=== PATIENT | female | born 1975 | race Caucasian/White ===

== ENCOUNTER 2019-04-27 15:49 | Emergency (ER) | payer OTHER ==
[2019-04-27 16:27] LABS: Absolute Lymphocytes (CBC) 2.6 K/uL (0.7-4.9); Absolute Monocytes 0.7 K/uL (0.1-1.3); Absolute Neutrophil 8.4 K/uL (1.8-8.0); Basophils % 1.1 % (0-1.3); Eosinophils % 1.2 % (0-4.4); Hematocrit 38.4 % (36.0-45.0); Lymphocytes % 21.8 % (15.3-44.8); MPV 8.8 fL (7.6-11.3); Monocytes % 6.1 % (3.3-12.3); RBC Red Blood Cell Count 4.65 M/uL (3.86-4.86)
[2019-04-27 16:28] LABS: Protime INR 1.05
--- NOTE | 2019-04-27 16:43 | RAD REPORT ---
EXAM DESCRIPTION: Autumn Single View04/27/2019 4:36 pm CLINICAL HISTORY: Chest pain COMPARISON: 2010 FINDINGS: The lungs appear clear of acute infiltrate. The heart is normal size IMPRESSION: No acute abnormalities displayed
[2019-04-27 17:22] LABS: ALT/SGPT 22 U/L (12-78); AST/SGOT 17 U/L (15-37); Albumin 3.3 g/dL (3.4-5.0); Alkaline Phosphatase 79 U/L (45-117); BUN Blood Urea Nitrogen 15 mg/dL (7-18); Bicarbonate 25 mmol/L (21-32); Bilirubin Direct < 0.1 mg/dL (0-0.2); Bilirubin Total 0.3 mg/dL (0.2-1.0); Glucose Level 109 mg/dL (74-106); Magnesium 1.8 mg/dL (1.8-2.4); NT PRO-BNP 66 pg/mL (<125); Protein, Total 8.1 g/dL (6.4-8.2); Sodium Level 137 mmol/L (136-145); Troponin (Emerg Dept Use Only) < 0.02 ng/mL (0.0-0.045)
--- NOTE | 2019-04-27 21:05 | ER ---
Nurse's Notes [facility] Name: Hue De La Cruz Age: 44 yrs Sex: Female : 1975 Arrival Date: 04/27/2019 Time: 15:51 Bed 4 Private MD: Marlon Morris Diagnosis: Chest pain, unspecified Presentation: 04/27 15:52 Presenting complaint: Patient states: i have this chest pain that started last night, hj burning pain; pain moves to my R shoulder area and back; reports SOB;pain is 4/10;. Transition of care: patient was not received from another setting of care. Onset of symptoms was April 27, 2019. Risk Assessment: Do you want to hurt yourself or someone else? Patient reports no desire to harm self or others. Initial Sepsis Screen: Does the patient meet any 2 criteria? No. Patient's initial sepsis screen is negative. Does the patient have a suspected source of infection? No. Patient's initial sepsis screen is negative. Care prior to arrival: None. 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 - Social history:: Smoking status: unknown. - Ebola Screening: : No symptoms or risks identified at this time. Screenin:41 Abuse screen: Denies threats or abuse. Denies injuries from another. Nutritional mg2 screening: No deficits noted. Tuberculosis screening: No symptoms or risk factors identified. Fall Risk IV access (20 points). Assessment: 16:38 General: Appears in no apparent distress. comfortable, Behavior is calm, cooperative. mg2 Pain: Complains of pain in chest Pain radiates to RUQ Pain currently is 2 out of 10 on a pain scale. Quality of pain is described as aching, Pain began gradually, since last night. Neuro: Level of Consciousness is awake, alert, obeys commands, Oriented to person, place, time, situation. Cardiovascular: Capillary refill < 3 seconds Patient's skin is warm and dry. Cardiovascular: Reports chest pain. Respiratory: Airway is patent Respiratory effort is even, unlabored, Respiratory pattern is regular, symmetrical. GI: No signs and/or symptoms were reported involving the gastrointestinal system. GI: Reports nausea. : No signs and/or symptoms were reported regarding the genitourinary system. EENT: No signs and/or symptoms were reported regarding the EENT system. Derm: Skin is intact, is healthy with good turgor, Skin is pink, warm \T\ dry. normal. 19:45 General: Appears in no apparent distress. comfortable, Behavior is calm, cooperative, cc3 appropriate for age. Pain: Complains of pain in chest Quality of pain is described as aching, Pain began last night. Neuro: Level of Consciousness is awake, alert, obeys commands, Oriented to person, place, time, situation. Neuro: Level of Consciousness is awake, alert, obeys commands, Oriented to person, place, time, situation, Appropriate for age. Cardiovascular: Reports chest pain, since last night. Cardiovascular: Reports chest pain, Capillary refill < 3 seconds Patient's skin is warm and dry. Respiratory: Airway is patent Respiratory effort is even, unlabored, Respiratory pattern is regular, symmetrical. GI: Abdomen is round non-distended. : No signs and/or symptoms were reported regarding the genitourinary system. EENT: No signs and/or symptoms were reported regarding the EENT system. Derm: Skin is intact, is healthy with good turgor, Skin is pink, warm \T\ dry. normal. Musculoskeletal: Circulation, motion, and sensation intact. Range of motion: intact in all extremities. 19:45 Reassessment: Patient appears in no apparent distress at this time. Patient and/or cc3 family updated on plan of care and expected duration. Pain level reassessed. Patient is alert, oriented x 3, equal unlabored respirations, skin warm/dry/pink. Patient denies pain at this time. Patient states feeling better. 20:30 Reassessment: Patient appears in no apparent distress at this time. Patient and/or cc3 family updated on plan of care and expected duration. Pain level reassessed. Patient is alert, oriented x 3, equal unlabored respirations, skin warm/dry/pink. Patient denies pain at this time. 21:17 Reassessment: Patient appears in no apparent distress at this time. Patient is alert, lp1 oriented x 3, equal unlabored respirations, skin warm/dry/pink. Patient denies pain at this time. Vital Signs: 15:54 BP 141 / 73; Pulse 83; Resp 20; Temp 97.7(O); Pulse Ox 98% on R/A; Weight 127.01 kg; hj Height 5 ft. 6 in. (167.64 cm); Pain 4/10; 18:01 BP 136 / 70; Pulse 80; Resp 18; Temp 98.5; Pulse Ox 100% on R/A; mg2 19:30 BP 134 / 80; Pulse 78; Resp 21 S; Pulse Ox 99% on R/A; cc3 20:30 BP 126 / 84; Pulse 83; Resp 20 S; Pulse Ox 96% on R/A; cc3 21:15 BP 134 / 87; Pulse 81; Resp 19; Pulse Ox 99% on R/A; Pain 0/10; lp1 15:54 Body Mass Index 45.19 (127.01 kg, 167.64 cm) hj ED Course: 15:51 Patient arrived in ED. mr 15:51 Marlon Morris MD is Private Physician. mr 15:53 Triage completed. hj 15:56 Arm band placed on right wrist. hj 16:10 EKG done, by certified neurodiagnostic technologist. reviewed by Arron Chavarria MD. sm3 16:12 Michael Crum, MANGO is Primary Nurse. mg2 16:14 Inserted saline lock: 20 gauge in left forearm, using aseptic technique. Blood mg2 collected. 16:17 Po Villalpando, PAULINA is PHCP. pm1 16:17 Arron Chavarria MD is Attending Physician. pm1 16:37 XRAY Chest (1 view) In Process Unspecified. EDMS 16:41 Patient has correct armband on for positive identification. monitor and storage bin tender on. Pulse mg2 ox on. NIBP on. 16:41 No provider procedures requiring assistance completed. Patient maintains SpO2 mg2 saturation greater than 95% on room air. 21:16 IV discontinued, No redness/swelling at site. Pressure dressing applied. lp1 Administered Medications: No medications were administered Outcome: 21:04 Discharge ordered by . pm1 21:16 Discharged to home ambulatory, with family. lp1 21:16 Condition: good 21:16 Discharge instructions given to patient, Instructed on discharge instructions, follow up and referral plans. Demonstrated understanding of instructions, follow-up care. 21:18 Patient left the ED. lp1 Signatures: Dispatcher [employer] CARMINA Alexa Bejarano mr Kell Pizarro RN RN lp1 Jayden Urbano RN RN hj Po Villalpando, ENGINEERING TECHNICIAN PARKING ENGINEERING TECHNICIAN PARKING pm1 Michael Crum RN RN [facility] Nelli Simmons sm3 Diann Blanton cc3 Corrections: (The following items were deleted from the chart) 15:56 15:54 Pulse 83bpm; Resp 20bpm; Pulse Ox 98% RA; Temp 97.7F Oral; 127.01 kg; Height 5 hj ft. 6 in.; BMI: 45.1; Pain 4/10; hj
--- NOTE | 2019-04-27 21:05 | EDPHYS ---
Physician Documentation [facility] Name: Hue De La Cruz Age: 44 yrs Sex: Female : 1975 Arrival Date: 04/27/2019 Time: 15:51 Bed 4 Private MD: Marlon Morris ED Physician Arron Chavarria HPI: 04/27 17:05 This 44 yrs old Female presents to ER via Ambulatory with complaints of Chest pm1 Pain. 17:05 The patient or guardian reports chest pain that is located primarily in the right pm1 breast. Onset: yesterday. The pain radiates to right shoulder. Associated signs and symptoms: Pertinent positives: shortness of breath, Pertinent negatives: dizziness, headache, nausea, vomiting. The chest pain is described as burning. Duration: The patient or guardian reports multiple episodes, that have now resolved. Modifying factors: The symptoms are alleviated by nothing. the symptoms are aggravated by deep breath. Severity of pain: in the emergency department the pain has resolved is a 0 / 10. The patient has not experienced similar symptoms in the past. The patient has not recently seen a physician. 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 - Social history:: Smoking status: unknown. - Ebola Screening: : No symptoms or risks identified at this time. ROS: 17:05 Constitutional: Negative for fever, chills, and weight loss, Eyes: Negative for injury, pm1 pain, redness, and discharge, ENT: Negative for injury, pain, and discharge, Neck: Negative for injury, pain, and swelling. 17:05 Abdomen/GI: Negative for abdominal pain, nausea, vomiting, diarrhea, and constipation. 17:05 Back: Negative for injury and pain, MS/Extremity: Negative for injury and deformity, Skin: Negative for injury, rash, and discoloration, Neuro: Negative for headache, weakness, numbness, tingling, and seizure. 17:05 Cardiovascular: Positive for chest pain, Negative for edema, orthopnea, palpitations. 17:05 Respiratory: Positive for shortness of breath, Negative for cough, dyspnea on exertion, sputum production, wheezing. Exam: 17:05 Constitutional: This is a well developed, well nourished patient who is awake, alert, pm1 and in no acute distress. Head/Face: Normocephalic, atraumatic. Eyes: Pupils equal round and reactive to light, extra-ocular motions intact. Lids and lashes normal. Conjunctiva and sclera are non-icteric and not injected. Cornea within normal limits. Periorbital areas with no swelling, redness, or edema. ENT: Nares patent. No nasal discharge, no septal abnormalities noted. Tympanic membranes are normal and external auditory canals are clear. Oropharynx with no redness, swelling, or masses, exudates, or evidence of obstruction, uvula midline. Mucous membranes moist. Neck: Trachea midline, no thyromegaly or masses palpated, and no cervical lymphadenopathy. Supple, full range of motion without nuchal rigidity, or vertebral point tenderness. No Meningismus. Chest/axilla: Normal chest wall appearance and motion. Nontender with no deformity. No lesions are appreciated. Cardiovascular: Regular rate and rhythm with a normal S1 and S2. No gallops, murmurs, or rubs. Normal PMI, no JVD. No pulse deficits. Respiratory: Lungs have equal breath sounds bilaterally, clear to auscultation and percussion. No rales, rhonchi or wheezes noted. No increased work of breathing, no retractions or nasal flaring. Abdomen/GI: Soft, non-tender, with normal bowel sounds. No distension or tympany. No guarding or rebound. No evidence of tenderness throughout. Back: No spinal tenderness. No costovertebral tenderness. Full range of motion. Skin: Warm, dry with normal turgor. Normal color with no rashes, no lesions, and no evidence of cellulitis. MS/ Extremity: Pulses equal, no cyanosis. Neurovascular intact. Full, normal range of motion. 17:05 Neuro: Orientation: is normal, Motor: is normal. Vital Signs: 15:54 BP 141 / 73; Pulse 83; Resp 20; Temp 97.7(O); Pulse Ox 98% on R/A; Weight 127.01 kg; hj Height 5 ft. 6 in. (167.64 cm); Pain 4/10; 18:01 BP 136 / 70; Pulse 80; Resp 18; Temp 98.5; Pulse Ox 100% on R/A; mg2 19:30 BP 134 / 80; Pulse 78; Resp 21 S; Pulse Ox 99% on R/A; cc3 20:30 BP 126 / 84; Pulse 83; Resp 20 S; Pulse Ox 96% on R/A; cc3 21:15 BP 134 / 87; Pulse 81; Resp 19; Pulse Ox 99% on R/A; Pain 0/10; lp1 15:54 Body Mass Index 45.19 (127.01 kg, 167.64 cm) hj MDM: 16:17 Patient medically screened. pm1 21:04 Data reviewed: vital signs. Data interpreted: Pulse oximetry: on room air is 96 %. pm1 Interpretation: normal. Counseling: I had a detailed discussion with the patient and/or guardian regarding: the historical points, exam findings, and any diagnostic results supporting the discharge/admit diagnosis, lab results, radiology results, the need for outpatient follow up, to return to the emergency department if symptoms worsen or persist or if there are any questions or concerns that arise at home. 04/27 16:13 Order name: CBC with Diff; Complete Time: 16:59 mg2 04/27 16:13 Order name: PT-INR; Complete Time: 16:59 mg2 04/27 16:13 Order name: XRAY Chest (1 view); Complete Time: 16:59 mg2 04/27 16:41 Order name: Basic Metabolic Panel; Complete Time: 18:01 EDMS 04/27 16:41 Order name: Liver (Hepatic) Function; Complete Time: 18:01 EDMS 04/27 16:41 Order name: Troponin (Emerg Dept Use Only); Complete Time: 18:01 EDMS 04/27 16:41 Order name: NT PRO-BNP; Complete Time: 18:01 EDMS 04/27 16:41 Order name: Magnesium; Complete Time: 18:01 EDMS 04/27 20:19 Order name: Troponin (emerg Dept Use Only); Complete Time: 21:04 mg2 04/27 16:13 Order name: EKG; Complete Time: 16:15 mg2 04/27 16:13 Order name: Cardiac monitoring; Complete Time: 16:38 mg2 04/27 16:13 Order name: EKG - Nurse/Tech; Complete Time: 16:38 mg2 04/27 16:13 Order name: IV Saline Lock; Complete Time: 16:38 mg2 04/27 16:13 Order name: Labs collected and sent; Complete Time: 16:38 mg2 04/27 16:13 Order name: O2 Per Protocol; Complete Time: 16:38 mg2 04/27 16:13 Order name: O2 Sat Monitoring; Complete Time: 16:38 mg2 04/27 16:40 Order name: Labs - recollect needed; Complete Time: 17:03 bd Administered Medications: No medications were administered Disposition: 04/27/19 21:04 Discharged to Home. Impression: Chest pain, unspecified. - Condition is Stable. - Discharge Instructions: Nonspecific Chest Pain. - Medication Reconciliation Form, Thank You Letter, Antibiotic Education, Prescription Opioid Use form. - Follow up: Emergency Department; When: As needed; Reason: Worsening of condition. Follow up: Private Physician; When: 2 - 3 days; Reason: Recheck today's complaints, Continuance of care, Re-evaluation by your physician. - Problem is new. - Symptoms have improved. Addendum: 04/29/2019 06:58 Co-signature as Attending Physician, Arron Chavarria MD. r n Signatures: Dispatcher [employer] EDID Chantal Grider Roman, MD MD rn Pena, Laura RN RN lp1 Jayden Urbano, Po Byrd RN, PAULINA PROJECT GEOPHYSICIST pm1 Michael Crum RN RN mg2 Corrections: (The following items were deleted from the chart) 04/27 16:41 16:15 BASIC METABOLIC PANEL+C.LAB.BRZ ordered. EDID EDMS 16:41 16:15 HEPATIC FUNCTION+C.LAB.BRZ ordered. EDID EDMS 16:41 16:15 MAGNESIUM+C.LAB.BRZ ordered. EDID EDMS 16:41 16:15 PROBNP+C.LAB.BRZ ordered. EDID EDMS 16:41 16:15 TROPONIN (EMERG DEPT USE ONLY)+C.LAB.BRZ ordered. EDID EDMS 21:18 21:04 04/27/2019 21:04 Discharged to Home. Impression: Chest pain, unspecified. lp1 Condition is Stable. Forms are Medication Reconciliation Form, Thank You Letter, Antibiotic Education, Prescription Opioid Use. Follow up: Emergency Department; When: As needed; Reason: Worsening of condition. Follow up: Private Physician; When: 2 - 3 days; Reason: Recheck today's complaints, Continuance of care, Re-evaluation by your physician. Problem is new. Symptoms have improved. pm1 23:05 17:05 Modifying factors: The symptoms are alleviated by nothing. the symptoms are pm1 aggravated by nothing. pm1
--- NOTE | 2019-04-28 11:12 | EKG ---
Test Date: 2019-04-27 Test Time: 16:04:31 Rug Scratcher: MALGORZATA MEASUREMENT RESULTS: Intervals: Rate: 75 [place]: 166 QRSD: 80 QT: 374 QTc: 417 [place]: P: 49 [place]: 166 QRS: 13 T: 13 INTERPRETIVE STATEMENTS: Normal sinus rhythm Normal ECG Compared to ECG 08/23/2011 18:49:35 Sinus tachycardia no longer present Electronically Signed On 04-28-19 11:09:52 CDT by Jaxson Mann
== END 2019-04-27 21:18 | disposition home or self-care (01) ==
LOC: ER 15:49
DX: R07.9 Chest pain, unspecified (principal); I10 Essential (primary) hypertension
CPT/HCPCS: 36415; 71045; 80048; 80076; 83735; 83880; 84484; 85025; 85610; 93005; 99285

== ENCOUNTER 2022-01-06 13:08 | Emergency (ER) | payer BC, OTHER ==
[2022-01-06 14:18] LABS: Absolute Lymphocytes (CBC) 2.7 K/uL (0.7-4.9); Hematocrit 39.6 % (36.0-45.0); Lymphocytes % 29.7 % (15.3-44.8); MPV 7.7 fL (7.6-11.3); RBC Red Blood Cell Count 4.72 M/uL (3.86-4.86)
[2022-01-06 14:21] LABS: Protime INR 1.03
--- NOTE | 2022-01-06 14:27 | RAD REPORT ---
EXAM DESCRIPTION: RAD - Chest Single View - 01/06/2022 2:20 pm CLINICAL HISTORY: CHEST PAIN Chest pain. COMPARISON: Chest Single View dated 04/27/2019; CHEST SINGLE VIEW dated 08/23/2011; ABDOMEN ACUTE SERIE S dated 11/16/2009 FINDINGS: Portable technique limits examination quality. The lungs are grossly clear. The heart is normal in size. No displaced fractures. IMPRESSION: No acute intrathoracic process suspected.
[2022-01-06 14:39] LABS: ALT/SGPT 29 U/L (12-78); AST/SGOT 25 U/L (15-37); Albumin 3.4 g/dL (3.4-5.0); Alkaline Phosphatase 108 U/L (45-117); BUN Blood Urea Nitrogen 9 mg/dL (7-18); Bicarbonate 27 mmol/L (21-32); Bilirubin Direct < 0.1 mg/dL (0-0.2); Bilirubin Total 0.2 mg/dL (0.2-1.0); Glucose Level 121 mg/dL (74-106); Magnesium 2.1 mg/dL (1.8-2.4); NT PRO-BNP 37 pg/mL (<125); Potassium 3.4 mmol/L (3.5-5.1); Protein, Total 8.3 g/dL (6.4-8.2); Sodium Level 136 mmol/L (136-145)
--- NOTE | 2022-01-06 15:21 | RAD REPORT ---
EXAM DESCRIPTION: CT - Chest For Pe Angio - 01/06/2022 3:10 pm CLINICAL HISTORY: Chest pain. CHEST PAIN COMPARISON: No comparisons TECHNIQUE: CT angiogram of the pulmonary arteries was performed with MIP. All CT scans are performed using dose optimization technique as appropriate and may include automated exposure control or mA/KV adjustment according to patient size. FINDINGS: No evidence of pulmonary thromboembolism. No acute aortic finding demonstrated. The lungs are clear. No significant pericardial or pleural fluid. No concerning bony finding. IMPRESSION: No evidence of pulmonary thromboembolism. No acute lung findings.
[2022-01-06 15:52] LABS: SARS-COV-2 RT PCR NEGATIVE (NEGATIVE)
--- NOTE | 2022-01-06 17:46 | ER ---
Nurse's Notes [facility] Name: Hue De La Cruz Age: 46 yrs Sex: Female : 1975 Arrival Date: 01/06/2022 Time: 13:09 Bed 27 Private MD: Marlon Morris Diagnosis: Chest pain, unspecified Presentation: 01/06 13:39 Chief complaint: Patient states: CP off/on for 1 week. Anxiety and CP got worse since ll1 last night. Coronavirus screen: Vaccine status: Patient reports being unvaccinated. Client denies travel out of the [place] in the last 14 days. At this time, the client does not indicate any symptoms associated with coronavirus-19. Ebola Screen: Patient denies travel to an Ebola-affected area in the 21 days before illness onset. Initial Sepsis Screen: Does the patient meet any 2 criteria? No. Patient's initial sepsis screen is negative. Does the patient have a suspected source of infection? No. Patient's initial sepsis screen is negative. Risk Assessment: Do you want to hurt yourself or someone else? Patient reports no desire to harm self or others. Onset of symptoms was December 30, 2021. 13:39 Method Of Arrival: Ambulatory ll1 13:39 Acuity: DANISH 3 ll1 Triage Assessment: 18:17 General: Pt departed ed ambulatory with all personal effects, pt in nad, vss. 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 - Social history:: Smoking status: Patient denies any tobacco usage or history of. Screenin:05 Abuse screen: Denies threats or abuse. Nutritional screening: No deficits noted. lr4 Tuberculosis screening: No symptoms or risk factors identified. Fall Risk None identified. Assessment: 14:11 General: Appears in no apparent distress. Behavior is calm, cooperative, appropriate ss7 for age. Pain: Complains of pain in chest. Cardiovascular: No deficits noted. Reports None chest pain, Heart tones S1 S2 Rhythm is regular. Respiratory: No deficits noted. GI: No deficits noted. : No deficits noted. EENT: Nares are clear with drainage noted. Derm: No deficits noted. Musculoskeletal: No deficits noted. 18:06 Pain: Pain does not radiate. Pain began suddenly. lr4 Vital Signs: 13:39 BP 136 / 74; Pulse 82; Resp 17; Temp 97.8; Pulse Ox 98% ; Weight 108.86 kg; Height 5 ll1 ft. 6 in. (167.64 cm); Pain 2/10; 16:30 BP 127 / 63; Pulse 83; Resp 18; Pulse Ox 99% ; ss7 18:04 BP 117 / 64; Pulse 82; Resp 20; Pulse Ox 97% ; lr4 13:39 Body Mass Index 38.74 (108.86 kg, 167.64 cm) ll1 ED Course: 13:09 Patient arrived in ED. as 13:10 Marlon Morris MD is Private Physician. as 13:40 Triage completed. ll1 13:41 Arm band placed on. ll1 13:46 Tae Rosado PA is PHCP. [facility] 13:46 Arron Chavarria MD is Attending Physician. m 14:12 cardiac monitor on. Pulse ox on. NIBP on. ss7 14:12 Inserted saline lock: 20 gauge in right antecubital area, using aseptic technique. ss7 14:20 XRAY Chest (1 view) In Process Unspecified. EDMS 15:10 CT Chest For PE Angio In Process Unspecified. EDMS 16:50 Troponin High Sensitivity Sent. ss7 17:46 Koko Joy MD is Referral Physician. [facility] 18:05 No provider procedures requiring assistance completed. lr4 18:06 Patient has correct armband on for positive identification. Bed in low position. Call lr4 light in reach. Side rails up X 1. Adult w/ patient. 18:06 Patient maintains SpO2 saturation greater than 95% on room air. lr4 18:06 IV discontinued. lr4 Administered Medications: No medications were administered Outcome: 17:46 Discharge ordered by . [facility] 18:05 Condition: stable lr4 18:06 Discharged to home ambulatory. lr4 18:07 Discharge instructions given to patient. lr4 18:17 Patient left the ED. lr4 Signatures: Dispatcher [employer] EDMS Tae Rosado PA PA jmm Martinez, Amelia as Lewis Lynsay, RN RN ll1 Radha Jarquin, RN RN ss7 Jagruti Cohen, RN RN lr4
--- NOTE | 2022-01-06 17:47 | EDPHYS ---
Physician Documentation [facility] Name: Hue De La Cruz Age: 46 yrs Sex: Female : 1975 Arrival Date: 01/06/2022 Time: 13:09 Bed 27 Private MD: Marlon Morris ED Physician Arron Chavarria HPI: 01/06 13:47 This 46 yrs old Female presents to ER via Ambulatory with complaints of Chest Pain, jmm Anxiety. 13:47 The patient or guardian reports chest pain that is located primarily in the substernal [facility] area. Onset: gradually, 1 week(s) ago. The pain radiates to back. Associated signs and symptoms: Pertinent negatives: abdominal pain, cough, diaphoresis, lower extremity pain, lower extremity swelling, lightheadedness, nausea, near syncope, palpitations, recent travel, shortness of breath. The chest pain is described as aching. Duration: The patient or guardian reports multiple episodes, last while she is awake. Modifying factors: The symptoms are alleviated by nothing. the symptoms are aggravated by nothing. . 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 - Social history:: Smoking status: Patient denies any tobacco usage or history of. ROS: 13:47 Constitutional: Negative for fever, chills, and weight loss. [facility] 13:47 Respiratory: Negative for shortness of breath, cough, wheezing, and pleuritic chest pain. 13:47 Cardiovascular: Positive for chest pain. 13:47 All other systems are negative. Exam: 13:47 Constitutional: This is a well developed, well nourished patient who is awake, alert, jmm and in no acute distress. Head/Face: atraumatic. Eyes: EOMI, no conjunctival erythema appreciated ENT: Moist Mucus Membranes Neck: Trachea midline, Supple Chest/axilla: Normal chest wall appearance and motion. 13:47 Cardiovascular: Rate: normal, Rhythm: regular. Vital Signs: 13:39 BP 136 / 74; Pulse 82; Resp 17; Temp 97.8; Pulse Ox 98% ; Weight 108.86 kg; Height 5 ll1 ft. 6 in. (167.64 cm); Pain 2/10; 16:30 BP 127 / 63; Pulse 83; Resp 18; Pulse Ox 99% ; ss7 18:04 BP 117 / 64; Pulse 82; Resp 20; Pulse Ox 97% ; lr4 13:39 Body Mass Index 38.74 (108.86 kg, 167.64 cm) ll1 MDM: 14:47 Patient medically screened. [facility] 17:42 Data reviewed: vital signs, nurses notes. Counseling: I had a detailed discussion with castillo the patient and/or guardian regarding: the historical points, exam findings, and any diagnostic results supporting the discharge/admit diagnosis, lab results, radiology results, the need for outpatient follow up, to return to the emergency department if symptoms worsen or persist or if there are any questions or concerns that arise at home. ED course: HEART SCORE = 3. Symptoms have been ongoing for the past week. Constant pain since 0700 this morning. . 01/06 13:47 Order name: Basic Metabolic Panel; Complete Time: 14:48 [facility] 01/06 13:47 Order name: CBC with Diff; Complete Time: 14:48 [facility] 01/06 13:47 Order name: LFT's; Complete Time: 14:48 [facility] 01/06 13:47 Order name: Magnesium; Complete Time: 14:48 [facility] 01/06 13:47 Order name: NT PRO-BNP; Complete Time: 14:48 [facility] 01/06 13:47 Order name: PT-INR; Complete Time: 14:48 [facility] 01/06 13:47 Order name: Troponin HS; Complete Time: 14:48 [facility] 01/06 13:47 Order name: XRAY Chest (1 view); Complete Time: 14:48 [facility] 01/06 13:47 Order name: EKG; Complete Time: 13:48 [facility] 01/06 13:47 Order name: Cardiac monitoring; Complete Time: 14:11 [facility] 01/06 13:47 Order name: EKG - Nurse/Tech; Complete Time: 14:11 [facility] 01/06 13:47 Order name: COVID-19/FLU A+B (Document "Date of Onset" if Symptomatic); Complete Time: [facility] 16:04 01/06 14:49 Order name: CT Chest For PE Angio; Complete Time: 15:24 [facility] 01/06 16:11 Order name: Troponin High Sensitivity; Complete Time: 17:07 [facility] 01/06 13:47 Order name: IV Saline Lock; Complete Time: 14:11 [facility] 01/06 13:47 Order name: Labs collected and sent; Complete Time: 14:11 [facility] 01/06 13:47 Order name: O2 Per Protocol; Complete Time: 14:11 [facility] 01/06 13:47 Order name: O2 Sat Monitoring; Complete Time: 14:11 [facility] Administered Medications: No medications were administered Disposition: 18:32 Co-signature as Attending Physician, Arron Chavarria MD. rn Disposition Summary: 01/06/22 17:46 Discharge Ordered Location: Home [facility] Condition: Stable [facility] Diagnosis - Chest pain, unspecified [facility] Followup: [facility] - With: Koko Joy MD - When: 2 - 3 days - Reason: Recheck today's complaints, Continuance of care, Re-evaluation by your physician Discharge Instructions: - Discharge Summary Sheet [facility] - Nonspecific Chest Pain, Adult jm Forms: - Medication Reconciliation Form [facility] - Thank You Letter [facility] - Antibiotic Education [facility] - Prescription Opioid Use [facility] Signatures: Dispatcher [employer] EDTae Hsieh PA PA [facility] Arron Chavarria MD MD rn Lewis, Lynsay RN RN ll1
[2022-01-06 19:48] VITALS: BP 117/64; O2SAT 97
[2022-01-06 19:51] VITALS: TEMP 97.8
--- NOTE | 2022-01-07 10:17 | EKG ---
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
== END 2022-01-06 18:17 | disposition home or self-care (01) ==
LOC: ER 13:08
DX: R07.9 Chest pain, unspecified (principal); I10 Essential (primary) hypertension; Z20.822 Contact with and (suspected) exposure to COVID-19
CPT/HCPCS: 93005; 85025; 80048; 36415; 83735; 85610; 80076; 84484 ×2; 83880; 0240U; 71275; 71045; 99285; Q9967